=== PATIENT | female | born 1990 | race Caucasian/White ===

== ENCOUNTER 2016-03-17 20:58 | Emergency (ER) | payer MEDICAID ==
[2016-03-17] MEDS ORDERED: SULFAMETH/TRIMETH DS 800/160 MG TABLET PO STA (21:48)
[2016-03-17] MEDS ORDERED: HYDROcod/ACET 5/325 Prepack 6 PO STA (21:48)
[2016-03-17] MEDS ORDERED: SULFAMETH/TRIMETH DS 800/160 MG TABLET PO ONE (21:53)
[2016-03-17] MEDS ORDERED: HYDROcod/ACETAM 5/325 MG TABLET ONE (21:53)
[2016-03-17] MEDS ORDERED: HYDROcod/ACET 5/325 Prepack 6 PO ONE (21:56)
== END 2016-03-17 22:04 | disposition home or self-care (01) ==
DX: N12 Tubulo-interstitial nephritis, not specified as acute or chronic (principal); F17.200 Nicotine dependence, unspecified, uncomplicated
CPT/HCPCS: 81001; 81025; 87086; 99283; 99284; A9270

== ENCOUNTER 2017-03-30 01:40 | Emergency (ER) | payer MEDICAID ==
--- NOTE | 2017-03-30 03:47 | ED Physician Documentation ---
PD HPI SKIN - Stated complaint Stated Complaint: RASH JAY LEGS - Chief complaint Chief Complaint: Wound - History obtained from History obtained from: Patient - History of Present Illness Timing - onset: How many weeks ago (2) Timing - details: Gradual onset Pain level max: 0 Pain level now: 0 Location: Other (multiple sites: predominantly BLE, but also chest wall, abdominal wall and left flank, back, and wrists) Quality / character: Itchy, Discolored. No: Painful, Burning Associated symptoms: No: Fever, Myalgias, Joint pain, Headache Contributing factors: Unknown Similar symptoms before: Has not had sx before Recently seen: Not recently seen - Additional information Additional information: patient noticed a solitary skin lesion on right pre-tibial surface 2 weeks ago, thought it might be ringworm and thus has been applying OTC clotrimazole; she notes that the lesion has changed in appearance, but unsure if it has "improved " per se. over the past 1-2 weeks, she has had several other similar but smaller lesions appearing on bilateral pretibial surfaces, as well as rash on left chest wall, back, bilateral wrists, and left flank and left lower abdominal wall. Review of Systems Constitutional: denies: Fever, Myalgias Skin: reports: Rash PD PAST MEDICAL HISTORY - Past Medical History Past Medical History: No - Past Surgical History Past Surgical History: Yes HEENT: Tonsil/Adenoidectomy - Present Medications Home Medications: Ambulatory Orders Medication Instructions Recorded Confirmed predniSONE [Prednisone] 40 mg PO DAILY 4 Days #8 tablet 03/30/17 - Allergies Allergies/Adverse Reactions: Allergies Allergy/AdvReac Type Severity Reaction Status Date / Time No Known Drug Allergies Allergy Verified 03/30/17 01:48 - Social History Does the pt smoke?: Yes Smoking Status: Current every day smoker Does the pt drink ETOH?: No Does the pt have substance abuse?: No - Immunizations Immunizations are current?: Yes - POLST Patient has POLST: No PD ED PE NORMAL - Vitals Vital signs reviewed: Yes - General General: Alert and oriented X 3, No acute distress, Well developed/nourished - Extremities Extremities: No edema PD ED PE EXPANDED - Derm Derm: Other (bilateral lower legs, anterior surfaces: multiple, discrete erythematous macules, mostly round or oval shaped, some with central clear blisters and surrounding erythema. None of the lesions have a true "bullseye" appearance. They measure 0.5-1 cm in diameter/longest axis. Non tender. There is also a solitary lesion with same descriptors on right volar wrist, and a small (0.25 cm) lesion on left volar wrist. There is an erythematous maculopapular exanthem on left chest wall, back, and left flank and anterior abdominal wall. ) Results - Vitals Vitals: Vital Signs - 24 hr 03/30/17 03/30/17 03/30/17 01:44 04:26 04:30 Temperature 36.6 C 36.8 C Heart Rate 89 79 77 Respiratory 16 17 18 Rate Blood Pressure 146/101 H 144/109 H 149/109 H O2 Saturation 99 100 99 Oxygen O2 Source Room air PD MEDICAL DECISION MAKING - ED course Complexity details: considered differential, d/w patient Departure - Departure Disposition: 01 Home, Self Care Clinical Impression: Exanthem Condition: Good Instructions: ED Erythema Follow-Up: Millicent Martínez ARNP [Primary Care Provider] - Prescriptions: predniSONE [Prednisone] 40 mg PO DAILY 4 Days #8 tablet Discharge Date/Time: 03/30/17 04:35
[2017-03-30] MEDS ORDERED: predniSONE 20 MG TABLET PO STA (04:17)
[2017-03-30 04:35] VITALS: BP 149/109
== END 2017-03-30 04:35 | disposition home or self-care (01) ==
LOC: ED 01:40
DX: R21 Rash and other nonspecific skin eruption (principal); F17.200 Nicotine dependence, unspecified, uncomplicated
CPT/HCPCS: 99283; J7512

== ENCOUNTER 2019-01-31 16:53 | Emergency (ER) | payer MEDICAID ==
[2019-01-31 17:04] VITALS: BP 145/101
--- NOTE | 2019-01-31 17:11 | ED Physician Documentation ---
PD HPI URI - Stated complaint Stated Complaint: EAR/THROAT PAIN, BODY ACHES, COUGH - Chief complaint Chief Complaint: Resp - History obtained from History obtained from: Patient - History of Present Illness Timing - onset: How many days ago (2-3) Timing duration: Days (2-3) Timing details: Abrupt onset, Still present Associated symptoms: Fever, Chills, Nasal congestion, Sore throat, Swollen nodes, Dry cough, Dyspnea. No: Hemoptysis, NVD Contributing factors: No: Sick contact, COPD / asthma Similar symptoms before: Has not had sx before Review of Systems Constitutional: reports: Fever, Chills, Myalgias, Fatigue Nose: reports: Congestion. denies: Rhinorrhea / runny nose Throat: reports: Sore throat Cardiac: denies: Chest pain / pressure Respiratory: reports: Cough GI: reports: Nausea, Diarrhea. denies: Abdominal Pain, Vomiting : denies: Dysuria, Frequency Neurologic: reports: Generalized weakness, Headache. denies: Near syncope, Confused, Altered mental status PD PAST MEDICAL HISTORY - Past Medical History Past Medical History: No - Past Surgical History Past Surgical History: Yes HEENT: Tonsil/Adenoidectomy - Present Medications Home Medications: Ambulatory Orders Medication Instructions Recorded Confirmed predniSONE [Prednisone] 40 mg PO DAILY 4 Days #8 tablet 03/30/17 Benzonatate [Tessalon Perle] 100 mg PO TID PRN #25 capsule 01/31/19 Hydrocodone/Acetaminophen [Ventura 1 each PO Q6H PRN #15 tablet 01/31/19 5-325 Tablet] Ondansetron Odt [Zofran] 4 mg TL Q6H PRN #10 tablet 01/31/19 dexAMETHasone [Decadron] 4 mg PO DAILY #7 tablet 01/31/19 - Allergies Allergies/Adverse Reactions: Allergies Allergy/AdvReac Type Severity Reaction Status Date / Time No Known Drug Allergies Allergy Verified 01/31/19 17:03 - Social History Does the pt smoke?: Yes Smoking Status: Current every day smoker Does the pt drink ETOH?: No Does the pt have substance abuse?: No - Immunizations Immunizations are current?: Yes - POLST Patient has POLST: No PD ED PE NORMAL - Vitals Vital signs reviewed: Yes - General General: Alert and oriented X 3, No acute distress (she seems like she feels ill but is able to interact well, and has normal voice and unlabored breathing. ), Well developed/nourished - HEENT HEENT: Moist mucous membranes, Pharynx benign - Neck Neck: Supple, no meningeal sign, No adenopathy - Cardiac Cardiac: RRR (regular but tachycardic), No murmur - Respiratory Respiratory: Clear bilaterally - Abdomen Abdomen: Soft, Non tender, No organomegaly - Derm Derm: Normal color, Warm and dry - Extremities Extremities: Normal ROM s pain - Neuro Neuro: Alert and oriented X 3, No motor deficit, Normal speech Eye Opening: To Voice Motor: Obeys Commands Verbal: Oriented GCS Score: 14 Results - Vitals Vitals: Oxygen O2 Source Room air PD MEDICAL DECISION MAKING - ED course Complexity details: considered differential (seems flu-like, with exam not concerning for significant process at this time. ), d/w patient Departure - Departure Disposition: Home, Self Care Clinical Impression: Viral syndrome Condition: Stable Record reviewed to determine appropriate education?: Yes Instructions: ED Viral Syndrome Follow-Up: Millicent Martínez ARNP [Primary Care Provider] - Prescriptions: Benzonatate [Tessalon Perle] 100 mg PO TID PRN #25 capsule PRN Reason: Cough dexAMETHasone [Decadron] 4 mg PO DAILY #7 tablet Hydrocodone/Acetaminophen [Ventura 5-325 Tablet] 1 each PO Q6H PRN #15 tablet PRN Reason: Pain Ondansetron Odt [Zofran] 4 mg TL Q6H PRN #10 tablet PRN Reason: Nausea / Vomiting Comments: Drink plenty of fluids. Tylenol or ibuprofen for pains. You can use Tessalon if needed for cough suppression. Ondansetron if needed for nausea. You will get considerable improvement from the Decadron steroid for inflammation and will help with cough and headache and sore throat. Take that daily for the next week. Add Tylenol or hydrocodone if needed for pains generally. I would anticipate improvement over 4 to 5 days but hopefully your symptoms will be much better with the above medications. Discharge Date/Time: 01/31/19 17:57
[2019-01-31] MEDS ORDERED: HYDROcod/ACETAM 5/325 MG TABLET PO STA (17:26)
[2019-01-31] MEDS ORDERED: ONDANSETRON ODT 4 MG TABLET TL STA (17:26)
[2019-01-31] MEDS ORDERED: DEXAMETHASONE 10 MG/ML VIAL PO STA (17:26)
[2019-01-31] MEDS ORDERED: CHERRY SYRUP 10 ML UDC PO ONE (17:26)
[2019-01-31] MEDS ORDERED: IBUPROFEN 600 MG TABLET PO STA (17:27)
== END 2019-01-31 17:57 | disposition home or self-care (01) ==
LOC: ED 16:53
DX: B34.9 Viral infection, unspecified (principal); F17.200 Nicotine dependence, unspecified, uncomplicated
CPT/HCPCS: 99283; A9270; Q0162